=== PATIENT | female | born 1965 | race Caucasian/White ===

== ENCOUNTER → 2016-12-05 | Outpatient (CLI) | payer OTHER ==
[~2016-12-05] MED LIST: AMITRIPTYLINE10 MG PO; AMOXICILLIN500 MG PO; ASPIRIN81 M1; ATARAX25 MG PO; ATIVAN1 MG PO; B121000 MCG/1 IM; BENADRYL25 MG; CELEXA40 MG PO; CLARITIN10 MG PO; CLONIDINE0.1 MG PO; CLONIDINE0.2 MG PO; Carafate1 GM PO; DESYREL100 MG PO; DOXYCYCLINE MO100 MG PO; FLEXERIL10 MG; FLORASTOR 33 MG1 CAP PO; FUROSEMIDE40 MG PO; GABAPENTIN300 MG PO; HYDROCHLOROTHIA25 MG; IMITREX SC; K-Dur 20MEQ20 MEQ PO; KENALOG0.1% TP; LISINOPRIL20 MG; MEDROL DOSEPAK4 MG PO; MIRALAX POWDER17 G1 PO; MIRALAX17 GM/PACK PO; MOBIC15 MG PO; MOTRIN800 MG PO; MS CONTIN15 MG PO; MS CONTIN30 MG PO; MUCINEX600 MG PO; NEURONTIN400 MG PO; NICODERM14 MG/24 H TD; NORVASC10 MG PO; NORVASC5 MG PO; OMEPRAZOLE MAGN20 MG PO; OMEPRAZOLE20 MG; OMEPRAZOLE20 MG PO; PERCOCET 325 MG1 TA4 PO; PERCOCET 325 MG1 TA7 PO; PERCOCET 325 MG1 TAB PO; PERI-COLACE 501 TAB PO; PHENERGAN W/DM120 ML PO; PHENERGAN25 M3 PO; POTASSIUM20 MEQ PO; PRED-PAK 455 MG; PROPRANOLOL HC120 M1; RANITIDINE15 MG/M1; RANITIDINE150 MG PO; REGLAN10 MG PO; RESTORIL30 MG PO; ROBAXIN750 MG PO; SYNTHROID0.025 MG PO; SYNTHROID0.1 MG PO; SYNTHROID0.112 MG PO; SYNTHROID0.175 MG PO; Senokot1 TAB PO; TIZANIDINE4 MG PO; TORADOL10 MG PO; VISTARIL50 MG PO; VITAMIN B11000 MCG/M IM; VITAMIN D5000 I2 PO; VITAMIN D50000 I3 PO; ZESTRIL40 MG PO
== END | disposition home or self-care (01) ==
LOC: MEDIPORT 13:00
DX: Z45.2 Encounter for adjustment and management of vascular access device (principal)

== ENCOUNTER → 2017-02-12 | Outpatient (CLI) | payer OTHER | END | disposition home or self-care (01) | LOC: MEDIPORT 02-06 14:00 | DX: Z45.2 Encounter for adjustment and management of vascular access device (principal); R60.0 Localized edema ==

== ENCOUNTER 2018-03-30 01:42 | Emergency (ER) | payer OTHER ==
[~2018-03-30] VITALS: Ht 167.6 cm; Wt 90.7 kg
[2018-03-30 02:33] VITALS: BP 154/88
== END 2018-03-30 04:01 | disposition home or self-care (01) ==
LOC: ED 01:42
DX: S60.511A Abrasion of right hand, initial encounter (principal); I86.8 Varicose veins of other specified sites; I10 Essential (primary) hypertension; Z79.899 Other long term (current) drug therapy; X58.XXXA Exposure to other specified factors, initial encounter; Y93.89 Activity, other specified; Y92.89 Other specified places as the place of occurrence of the external cause; Y99.8 Other external cause status

== ENCOUNTER 2019-04-15 19:42 | Emergency (ER) | payer OTHER ==
[~2019-04-15] VITALS: Ht 167.6 cm; Wt 88.5 kg
[2019-04-15 19:42] VITALS: BP 139/72
[~2019-04-15 19:42] MED LIST changes: +PROTONIX40 MG PO
[2019-04-15] MEDS ORDERED: VISTARIL25 MG PO (20:08)
[2019-04-15] MEDS ORDERED: DELTASONE20 M1 PO (20:08)
== END 2019-04-15 20:30 | disposition home or self-care (01) ==
LOC: ED 19:42
DX: L25.9 Unspecified contact dermatitis, unspecified cause (principal); J45.909 Unspecified asthma, uncomplicated; Z79.899 Other long term (current) drug therapy

== ENCOUNTER 2020-12-14 09:31 | Emergency (ER) | payer OTHER ==
[~2020-12-14] VITALS: Ht 167.6 cm; Wt 90.7 kg
[~2020-12-14 09:31] MED LIST changes: +DELTASONE20 M1 PO; +VISTARIL25 MG PO
[2020-12-14 09:41] VITALS: BP 121/74
== END 2020-12-14 10:24 | disposition home or self-care (01) ==
LOC: ED 09:31
DX: S30.861A Insect bite (nonvenomous) of abdominal wall, initial encounter (principal); Z90.49 Acquired absence of other specified parts of digestive tract; Z90.710 Acquired absence of both cervix and uterus; Z79.899 Other long term (current) drug therapy; W57.XXXA Bitten or stung by nonvenomous insect and other nonvenomous arthropods, initial encounter; Y93.89 Activity, other specified; Y92.89 Other specified places as the place of occurrence of the external cause; Y99.9 Unspecified external cause status

== ENCOUNTER 2021-01-24 21:01 | Emergency (ER) | payer OTHER ==
[~2021-01-24] VITALS: Ht 165.1 cm; Wt 88.5 kg
[2021-01-24 21:09] VITALS: BP 152/82
== END 2021-01-25 00:23 | disposition home or self-care (01) ==
LOC: ED 21:01
DX: S61.022A Laceration with foreign body of left thumb without damage to nail, initial encounter (principal); Z79.899 Other long term (current) drug therapy; X58.XXXA Exposure to other specified factors, initial encounter; Y93.89 Activity, other specified; Y92.89 Other specified places as the place of occurrence of the external cause; Y99.8 Other external cause status

== ENCOUNTER 2022-02-17 03:13 | Emergency (ER) | payer OTHER ==
[~2022-02-17] VITALS: Ht 167.6 cm; Wt 72.6 kg
[2022-02-17 03:43] VITALS: BP 101/59
[2022-02-17 03:49] LABS: BASO % 0.6 % (0.0-1.0); EOS # 0.4 10*3/uL (0.0-0.4); EOS % 6.2 % (1.0-4.0); HEMATOCRIT 36.1 % (37.0-47.0); LYMPH # 2.2 10*3/uL (1.3-4.4); LYMPH % 34.1 % (27.0-41.0); MEAN CELL VOLUME 92.3 fl (81.0-99.0); MEAN CORPUSCULAR HGB 29.7 pg (27.0-31.0); MEAN CORPUSCULAR HGB CONC 32.1 g/dl (33.0-37.0); MEAN PLATELET VOLUME 10.8 fl (9.6-12.3); MONO # 0.6 10*3/uL (0.1-1.0); MONO % 9.7 % (3.0-9.0); NEUT # 3.2 10*3/uL (2.3-7.9); NEUT % 49.1 % (47.0-73.0); PLATELET COUNT AUTOMATED 216 10*3/uL (130-400); RED BLOOD COUNT 3.91 10*6/uL (4.10-5.10); RED CELL DISTRI WIDTH 12.9 % (0-14.5); WHITE BLOOD COUNT 6.5 10*3/uL (4.8-10.8)
[2022-02-17 04:12] LABS: ALKALINE PHOSPHATASE 131 U/L (45-117); BUN 21 mg/dl (7-24); CHLORIDE 110 mmol/L (98-107); CREATININE 0.83 mg/dL (0.55-1.02); POTASSIUM 4.1 mmol/L (3.5-5.1); SGOT/AST 17 IU/L (3-35); SGPT/ALT 19 U/L (12-78); SODIUM 140 mmol/L (136-145); TOTAL PROTEIN 5.3 gm/dL (6.4-8.2)
[2022-02-17 04:58] LABS: BILIRUBIN Negative (Negative); BLOOD Negative (Negative); CLARITY Cloudy (Clear); COLOR Yellow (Yellow); GLUCOSE Negative (Negative); KETONE Trace (Negative); LEUKO ESTERASE 1+ (Negative); NITRITE Negative (Negative); PH 5.5 (4.5-8.0)
[2022-02-17 05:10] LABS: BACTERIA 1+; MUCOUS 1+; RBC 0-2 rbc/hpf (0-2)
[2022-02-17 05:12] LABS: URINE BARBITURATES < 200 (200ng/ml); URINE BENZODIAZEPINES < 200 (200ng/ml); URINE CANNABINOIDS (THC) < 50 (50ng/ml); URINE COCAINE < 300 (300ng/ml); URINE METHADONE < 300 (300ng/ml); URINE OPIATES > 300 (300ng/ml)
[2022-02-17 05:13] LABS: URINE AMPHETAMINES < 1000 (1000ng/ml)
[2022-02-17 05:19] LABS: URINE PHENCYCLIDINE < 25 (25ng/ml)
== END 2022-02-17 05:44 | disposition home or self-care (01) ==
LOC: ED 03:13
PROVIDERS: Internal Medicine
DX: R55 Syncope and collapse (principal); R00.1 Bradycardia, unspecified; E44.0 Moderate protein-calorie malnutrition; Z79.899 Other long term (current) drug therapy; Z90.49 Acquired absence of other specified parts of digestive tract; Z90.710 Acquired absence of both cervix and uterus; Z98.890 Other specified postprocedural states

== ENCOUNTER 2024-02-18 18:55 | Emergency (ER) | payer OTHER ==
[~2024-02-18] VITALS: Ht 167.6 cm; Wt 81.6 kg
[2024-02-18 19:16] VITALS: BP 102/59
[2024-02-18] MEDS ORDERED: Tdap Vaccine 0.5 ML SYR (Adult Vaccine) IM ONE (19:45)
[2024-02-18] MEDS ORDERED: Sulfamethoxazole/Trimethopri 1 TAB TAB PO ONE (20:25)
== END 2024-02-18 20:54 | disposition home or self-care (01) ==
LOC: ED 18:55
DX: S90.851A Superficial foreign body, right foot, initial encounter (principal); Z79.899 Other long term (current) drug therapy; Z90.49 Acquired absence of other specified parts of digestive tract; Z90.710 Acquired absence of both cervix and uterus; X58.XXXA Exposure to other specified factors, initial encounter; Y93.89 Activity, other specified; Y92.89 Other specified places as the place of occurrence of the external cause; Y99.8 Other external cause status

== ENCOUNTER 2024-07-23 13:04 | Emergency (ER) | payer OTHER ==
[~2024-07-23] VITALS: Ht 165.1 cm; Wt 83.9 kg
[2024-07-23 13:19] VITALS: BP 156/88
[2024-07-23] MEDS ORDERED: predniSONE 20 MG TAB PO ONE (13:30)
[2024-07-23] MEDS ORDERED: Amoxicillin/Clavulanate Pota 875 MG TAB PO ONE (13:30)
[2024-07-23] MEDS ORDERED: PREDNISONE20 M1 PO (13:32)
[2024-07-23] MEDS ORDERED: AMOX-CLAV 875-1 EACH PO (13:32)
== END 2024-07-23 13:42 | disposition home or self-care (01) ==
LOC: ED 13:04
DX: K13.0 Diseases of lips (principal); E11.9 Type 2 diabetes mellitus without complications; K21.9 Gastro-esophageal reflux disease without esophagitis; I10 Essential (primary) hypertension; Z90.49 Acquired absence of other specified parts of digestive tract; Z90.710 Acquired absence of both cervix and uterus; Z98.890 Other specified postprocedural states

== ENCOUNTER 2024-11-21 16:33 | Emergency (ER) | payer OTHER ==
[~2024-11-21] VITALS: Ht 167.6 cm; Wt 83.9 kg
[~2024-11-21 16:33] MED LIST changes: +AMOX-CLAV 875-1 EACH PO; +PREDNISONE20 M1 PO
[2024-11-21 16:39] VITALS: BP 135/75
[2024-11-21] MEDS ORDERED: CREON 3000 PO (16:41)
[2024-11-21 16:59] LABS: BILIRUBIN Negative (Negative); BLOOD 2+ (Negative); CLARITY Cloudy (Clear); COLOR Yellow (Yellow); GLUCOSE Negative (Negative); KETONE Trace (Negative); LEUKO ESTERASE 2+ (Negative); NITRITE Negative (Negative); SPECIFIC GRAVITY >= 1.030 (1.001-1.030)
[2024-11-21] MEDS ORDERED: PYRIDIUM100 MG PO (17:08)
[2024-11-21] MEDS ORDERED: CIPRO500 MG PO (17:08)
[2024-11-21] MEDS ORDERED: Phenazopyridine Hydrochlorid2 100 MG TAB PO ONE (17:10)
[2024-11-21] MEDS ORDERED: Ciprofloxacin Hydrochloride 500 MG TAB PO ONE (17:10)
[2024-11-21 17:39] LABS: BACTERIA 1+; WBC TNTC wbc/hpf (0-5)
== END 2024-11-21 17:49 | disposition home or self-care (01) ==
LOC: ED 16:33
PROVIDERS: Nurse Practitioner
DX: N39.0 Urinary tract infection, site not specified (principal); I10 Essential (primary) hypertension; K21.9 Gastro-esophageal reflux disease without esophagitis; Z90.49 Acquired absence of other specified parts of digestive tract; Z90.710 Acquired absence of both cervix and uterus; Z79.899 Other long term (current) drug therapy